=== PATIENT | female | born 1985 | race Caucasian/White ===

== ENCOUNTER 2020-01-04 14:31 | Emergency (ER) | payer SELFPAY ==
[2020-01-04] MEDS ORDERED: KETOROLAC TROMETHAMINE INJ 30 MG/ML VIAL IM ONE (14:41)
[2020-01-04] MEDS ORDERED: CLINDAMYCIN HCL CAP 150 MG CAP PO ONE (14:41)
--- NOTE | 2020-01-04 14:43 | ED.PDOC ---
History of Present Illness - General Time Seen by Provider: 01/04/20 14:41 Source: patient, Vital Signs reviewed Additional Information: 34-year-old female prediabetic presenting to the ER because of dental pain patient has been seen by dentist they did not prescribe her any antibiotics or pain medications patient is supposed to see a dentist again on Sunday the plan was to pull her teeth out but he will have to wait until next week, patient is complaining of discomfort at the moment and some swelling per patient the dentist ordered that there was no evidence of periodontal abscess, Patient is a smoker - History of Present Illness Improving Factors: nothing Worsening Factors: nothing Home Medications: Ambulatory Orders Acetaminophen W/ Codeine [Tylenol W/ CODEINE #3] 1 ea PO Q6HR #20 ea 01/04/20 Clindamycin HCl [Clindamycin Hydrochloride] 300 mg PO TID #21 cap 01/04/20 Review of Systems - Review of Systems Constitutional: States: no symptoms reported EENTM: States: other - Dental pain Respiratory: States: no symptoms reported Cardiology: States: no symptoms reported Gastrointestinal/Abdominal: States: no symptoms reported Genitourinary: States: no symptoms reported Musculoskeletal: States: no symptoms reported Skin: States: no symptoms reported Neurological: States: no symptoms reported Endocrine: States: no symptoms reported Hematologic/Lymphatic: States: no symptoms reported Physical Exam - Physical Exam General Appearance: Alert Eye Exam: bilateral normal Ear Exam: bilateral ear: auricle normal Nasal Exam: normal inspection Throat Exam: pharynx normal, dental tenderness, other - Patient swelling noted in the gingival area on tooth numbe 48. He denies any fluctuating masses no cavities Neck: non-tender, full range of motion, supple, normal inspection, trachea midline Cardiovascular/Respiratory: regular rate, rhythm, no M/R/G, normal peripheral pulses, no JVD, normal breath sounds, no respiratory distress Neurologic: frame maker II-XII nml as tested, no motor/sensory deficits, alert, normal mood/affect, oriented x 3 Skin Exam: normal color Progress - Progress Progress: He has no uvular swelling no uvular deviation no submental mass no drooling or trismus there is some redness and swelling in the digital area surrounded to #34, no peritonsillar abscess, patient will be charged home with clindamycin and Benadryl for pain patient does have an appointment with a dentist 01/04/20 14:45 Departure - Departure Clinical Impression: Pain, dental Disposition: Discharge to Home or Self Care Condition: Fair Instructions: Dental Pain (DC) Diet: full liquid diet Prescriptions: Acetaminophen W/ Codeine [Tylenol W/ CODEINE #3] 1 ea PO Q6HR #20 ea Clindamycin HCl [Clindamycin Hydrochloride] 300 mg PO TID #21 cap Home Medications: Ambulatory Orders Acetaminophen W/ Codeine [Tylenol W/ CODEINE #3] 1 ea PO Q6HR #20 ea 01/04/20 Clindamycin HCl [Clindamycin Hydrochloride] 300 mg PO TID #21 cap 01/04/20
[2020-01-04 14:45] VITALS: TEMP 98.2
[2020-01-04 15:07] VITALS: BP 126/87; O2SAT 99
== END 2020-01-04 15:04 | disposition home or self-care (01) ==
LOC: ER 14:31
DX: K08.89 Other specified disorders of teeth and supporting structures (principal); F17.200 Nicotine dependence, unspecified, uncomplicated